=== PATIENT | female | born 1990 | race Caucasian/White ===

== ENCOUNTER 2016-11-24 08:48 | Inpatient (IN) | payer OTHER ==
[2016-11-24] VITALS (7 sets, daily range): BP systolic 90–120; BP diastolic 55–69; PULSE 50–57; RESP 16–18; Ht 144.8 cm; Wt 62.2 kg
[~2016-11-24] VITALS: Ht 144.8 cm; Wt 62.2 kg
--- NOTE | 2016-11-24 09:32 | RADRPT ---
PROCEDURE: US OB biophysical profile. CLINICAL INDICATION: decreased movements, contractions TECHNIQUE: Multiple sonographic images of the pelvis were obtained. The images were reviewed on a PACS workstation. COMPARISON: No prior studies are available for comparison. FINDINGS: There is a single viable intrauterine gestation. Cardiac activity is present with 124 beats per min [place]. There is a vertex presentation. The placenta is anterior. There is no evidence of placental abruption. There is a normal amount of amniotic fluid with an MARIA EUGENIA = 12.5 cm. Biophysical profile: movement 2/2 tone 2/2. breathing 2/2 MARIA EUGENIA 2/2 Total 11/21 RPTAT: AA . IMPRESSION: Normal biophysical profile. . .Chan Wall MD, MD Date Time Electronically viewed and signed by .Chan Wall MD, MD on 11/24/2016 09:31 .S/
--- NOTE | 2016-11-24 09:33 | RADRPT ---
PROCEDURE: US OB. CLINICAL INDICATION: Size and dates , contractions TECHNIQUE: Multiple sonographic images of the pelvis and gravid uterus were obtained. The images were reviewed on a PACS workstation. COMPARISON: No prior studies are available for comparison. FINDINGS: There is a single viable intrauterine gestation. Cardiac activity is present with 118 beats per min [place]. There is a vertex presentation. The placenta is anterior. There is no evidence of placental abruption. There is a normal amount of amniotic fluid with an MARIA EUGENIA = 12.5 cm. Measurements were made in order to determine age. The results are as follows: BPD =8.7 cm HC =33.1 cm AC =34.9 cm FL =7.2 cm Estimated gestational age of approximately 37 weeks and 1 day based on ultrasound measurements. Clinical age: 39 weeks and 0 days. The estimated date of delivery is 12/14/16, based on ultrasound measurements. The EFW = 3312 g, 39%, based on LMP age. RPTAT: AA IMPRESSION: Single viable intrauterine gestation of approximately 37 weeks and 1 day based on ultrasound measur ements. .Chan Wall MD, Date Time Electronically viewed and signed by .Chan Wall MD, MD on 11/24/2016 09:32 .S/
[2016-11-24] MEDS ORDERED: CARBOPROST 250 MCG INJ IM PRN ×2 (10:30→15:30)
[2016-11-24] MEDS ORDERED: MISOPROSTOL 200 MCG TAB PR PRN ×2 (10:30→15:30)
[2016-11-24] MEDS ORDERED: OXYTOCIN 30 UNITS/LR 500 ML IV SCH (10:30)
[2016-11-24] MEDS ORDERED: METHYLERGONOVINE 0.2 MG INJ IM PRN ×2 (10:30→15:30)
[2016-11-24] MEDS ORDERED: CEFAZOLIN 2 GM/50 ML (PMX) 50 ML IV SCH (10:30)
[2016-11-24] MEDS ORDERED: OXYTOCIN 30 UNITS/LR 500 ML IV PRN ×2 (10:30→15:30)
[2016-11-24 10:41] LABS: BASOPHILS % 0.3 % (0.0-2.0); EOSINOPHILS # 0.1 10^3/ul (0.0-0.5); EOSINOPHILS % 1.2 % (0.0-7.0); HEMATOCRIT 31.9 % (37.0-47.0); HEMOGLOBIN 10.2 g/dl (12.0-16.0); LYMPHOCYTES % 20.4 % (15.0-51.0); MEAN CORPUSCULAR HEMOGLOBIN 27.8 pg (29.0-33.0); MEAN CORPUSCULAR VOLUME 86.9 fl (82.0-101.0); MEAN PLATELET VOLUME 10.3 fl (7.4-10.4); MONOCYTE # 0.7 10^3/ul (0.3-0.9); NEUTROPHIL # 6.6 10^3/ul (1.6-7.5); NEUTROPHILS % 68.4 % (39.0-77.0); PLATELET COUNT 215 10^3/UL (140-415); RED BLOOD COUNT 3.67 10^6/ul (4.20-5.40); WHITE BLOOD COUNT 9.7 10^3/ul (4.8-10.8)
[2016-11-24 10:55] LABS: INR 0.89; PT RATIO 0.9
[2016-11-24 10:56] LABS: PARTIAL THROMBOPLASTIN TIME 29.2 Sec (25.0-35.0)
--- NOTE | 2016-11-24 10:56 | TRIAGE ---
OB Triage Datetime Report Generated by CPN: 11/24/2016 10:56 Datetime: 11/24/2016 10:48 Assessment Type: Admission Assessment Vaginal Bleeding: None Maternal Assessment Level of Consciousness: Fully Conscious DTR's/Clonus: DTRs 2+; No Clonus Headache: Denies Blurred Vision: No Respiratory Effort: Unlabored; Regular Rhythm; Equal Expansion Breath Sounds, Left: Clear and Equal Breath Sounds, Right: Clear and Equal Nausea/Vomiting: Denies RUQ Epigastric Pain: Denies Lower Extremities Edema: None Degree: None Upper Extremities Edema: None Degree: None Facial Edema: None Fall Risk Assessment History of Falling: (0) No Secondary Diagnosis: (0) No Ambulatory Aid: (0) Bedrest/Nurse Assist Gait: (0) Normal/Bedrest/Immobile Mental Status: (0) Oriented to Own Ability Labor Evaluation Frequency: irreg Duration (sec)2399: 40-60 Quality: Mild Pattern: Normal: <= 5 Contractions in 10 Minutes Resting Tone [place]: Relaxed Heart Rate FHR Baseline Rate: 115 Variability: Moderate 6-25 bpm Accelerations: 15X15 Decelerations: Variable Category: Category II Pain Assessment Pain Scale: 0 Pain Presence: None/Denies Pain Goal: 3 Datetime: 11/24/2016 10:47 Time of Arrival: 11/24/2016 10:30 EGA: 39.0 Arrived By: Ambulatory Arrived From: Other Unit in Hospital Datetime: 11/24/2016 09:14 Maternal Assessment Level of Consciousness: Fully Conscious DTR's/Clonus: DTRs 2+; No Clonus Headache: Denies Blurred Vision: No Respiratory Effort: Unlabored; Regular Rhythm; Equal Expansion Breath Sounds, Left: Clear and Equal Breath Sounds, Right: Clear and Equal Nausea/Vomiting: Denies RUQ Epigastric Pain: Denies Facial Edema: None Fall Risk Assessment History of Falling: (0) No Secondary Diagnosis: (0) No Ambulatory Aid: (0) Bedrest/Nurse Assist IV Therapy: (0) No Gait: (0) Normal/Bedrest/Immobile Mental Status: (0) Oriented to Own Ability Fall Score: 0 Fall Risk Score Definition: No Risk: No action required Datetime: 11/24/2016 09:13 Stage of : OB Triage Assessment Type: Admission Assessment Maternal Assessment Level of Consciousness: Fully Conscious DTR's/Clonus: DTRs 2+; No Clonus Headache: Denies Blurred Vision: No Respiratory Effort: Unlabored; Regular Rhythm; Equal Expansion Breath Sounds, Left: Clear and Equal Breath Sounds, Right: Clear and Equal Nausea/Vomiting: Denies RUQ Epigastric Pain: Denies Lower Extremities Edema: None Degree: None Upper Extremities Edema: None Degree: None Facial Edema: None Temperature Route: Axillary Fall Risk Assessment History of Falling: (0) No Secondary Diagnosis: (0) No Ambulatory Aid: (0) Bedrest/Nurse Assist IV Therapy: (0) No Gait: (0) Normal/Bedrest/Immobile Mental Status: (0) Oriented to Own Ability Fall Score: 0 Fall Risk Score Definition: No Risk: No action required Pain Assessment Pain Scale: 0 Pain Presence: None/Denies Pain Type: N/A Datetime: 11/24/2016 09:12 Time of Arrival: 11/24/2016 10:30 EGA: 39.0 Arrived By: Ambulatory Arrived From: Home Chief Complaint: PT REPORTS DR. BERMUDEZ SENT HER FROM THE CLINIC FOR SCHEDULED C/S Movement: Present Contractions: Denies/Absent Rupture of Membranes: Denies Vaginal Bleeding: None Vaginal Discharge: Denies Recent Sexual Intercouse: Denies Abdominal Trauma: Not Applicable Time Provider Notified: 11/24/2016 09:30 Provider Notified: DR. BERMUDEZ Initial Plan: SVE, BPP, EFW Datetime: 11/24/2016 09:11 Vaginal Exam Dilatation (cms): 0.0 Effacement (%): 0 Station: -3 Exam By: MIKAELA GARCIA
[2016-11-24] MEDS ORDERED: LACTATED RINGER'S 1,000 ML IV SCH (11:06)
[2016-11-24] MEDS ORDERED: CITRIC ACID/NA CITRATE 30 ML CUP ONE (11:09)
[2016-11-24] MEDS ORDERED: ONDANSETRON 4 MG INJ ONE (11:09)
[2016-11-24] MEDS ORDERED: morphine SULFATE/PF (10 MG/10 ML) INJ ONE (11:54)
[2016-11-24] MEDS ORDERED: OXYTOCIN 10 UNIT INJ ONE (11:55)
[2016-11-24] MEDS ORDERED: PHENYLephrine (100 MCG/ML) 5ML SYG ONE ×2 (11:55→12:30)
[2016-11-24] MEDS ORDERED: CITRIC ACID/NA CITRATE 30 ML CUP PO ONE (12:00)
[2016-11-24] MEDS ORDERED: ONDANSETRON 4 MG INJ IV ONE (12:00)
[2016-11-24] MEDS ORDERED: DEXAMETHASONE 4 MG/ML 1 ML INJ ONE (12:23)
[2016-11-24] MEDS ORDERED: KETOROLAC 30 MG INJ ONE (12:23)
[2016-11-24] MEDS ORDERED: METOCLOPRAMIDE 10 MG INJ ONE (12:23)
[2016-11-24] MEDS ORDERED: DIPHENHYDRAMINE 50 MG INJ IV PRN ×2 (12:30→16:00)
[2016-11-24] MEDS ORDERED: NALOXONE (0.4 MG/ML) INJ IV PRN ×2 (12:30→16:00)
[2016-11-24] MEDS ORDERED: HYDROmorphONE 1 MG/ML SYG IV PRN ×4 (12:30→16:00)
[2016-11-24] MEDS ORDERED: morphine 4 MG/ML VIAL IV PRN ×2 (12:30→16:00)
[2016-11-24] MEDS ORDERED: HYDROCODONE/APAP (5/325) TAB PO PRN ×3 (12:30→16:00)
[2016-11-24] MEDS ORDERED: ONDANSETRON 4 MG INJ IV PRN ×2 (12:30→16:00)
[2016-11-24] MEDS ORDERED: KETOROLAC 30 MG INJ IV PRN ×2 (12:30→16:00)
[2016-11-24] MEDS ORDERED: ACETAMINOPHEN 500 MG TAB PO PRN ×2 (12:30→16:00)
[2016-11-24] MEDS ORDERED: NALBUPHINE HCL (10 MG/1 ML) INJ IV PRN ×2 (12:30→16:00)
[2016-11-24] MEDS ORDERED: morphine 2 MG INJ IV PRN ×2 (12:30→16:00)
--- NOTE | 2016-11-24 12:56 | OPR ---
Date/Time of Note Date/Time of Note DATE: 11/24/16 TIME: 12:54 Operative Report Free Text/Dictation iup 39 weeks in early labor cat II tracing at times with regular Ucx Preoperative Diagnosis iu p 39 weeks ho of c/section X2 ealry labor Postoperative Diagnosis same Operation/Procedure Performed [facility] Surgeon: BRIDGER SALDIVAR MD technical administrative assistant: GALINA RUIZ MD Anesthesia Type: spinal Estimated Blood Loss: other (600) Transfusion Required: no Specimen: none Specimens placenta BRIDGER SALDIVAR MD Nov 24, 2016 12:56
--- NOTE | 2016-11-24 13:59 | HP ---
DATE OF ADMISSION: 11/24/2016 HISTORY OF PRESENT ILLNESS: The patient is a 26-year-old, G3, P2, who is now at 39 weeks with a history of section x2, for repeat section. Although the patient was not complaining of abdominal pain, the patient was found to have a category 2 tracing and comes in for decelerations. The patient was saad every one to three minutes. At this point, the patient was admitted for repeat section. Risks and benefits discussed which include infection, bleeding, possibility of blood transfusions which were discussed with patient. PAST MEDICAL HISTORY: None. PAST SURGICAL HISTORY: section x2. MEDICATIONS: vitamins. PHYSICAL EXAMINATION: VITAL SIGNS: Stable. HEART: Regular rate and rhythm. LUNGS: Clear to auscultation bilaterally. ABDOMEN: Soft. Fundal height is 38 cm. EXTREMITIES: No edema. ASSESSMENT: Intrauterine at 39 weeks, history of section x2. The patient desires repeat. The patient will be admitted for repeat section. Risks and benefits discussed. The patient understands this, for hospital admission. Dictated By: David Rothman MD /lucy/humberto /Document#: [id number]
--- NOTE | 2016-11-24 14:05 | OPR ---
DATE OF OPERATION: 11/24/2016 PREOPERATIVE DIAGNOSES: 1. Intrauterine at 39 weeks. 2. History of section x2. Patient desires repeat. POSTOPERATIVE DIAGNOSES: 1. Intrauterine at 39 weeks. 2. History of section x2. Patient desires repeat. OPERATION PERFORMED: Repeat low segment transverse section. SURGEON: David Rothman MD SUPERVISOR SEWING ROOM: Unruly Pope MD FINDINGS: 1. A viable infant. 2. Normal tubes and ovaries. ESTIMATED BLOOD LOSS: 600 COMPLICATIONS: None. SPECIMEN: Placenta. INDICATION: The patient is a 26-year-old, G3, P2. Patient now at 39 weeks. For repeat section. The patient presented to [facility] and upon monitoring, it was noted that the patient was having irregular uterine contractions. The patient had occasional variable decelerations. In view of the fact that the patient was term, had desired repeat section, and was having category 2 tracing at times and uterine contractions, the patient was admitted for repeat section. Risks and benefits discussed which included infection, bleeding, damage to organs, need for blood transfusion. All discussed with patient. The patient understood the risks and consented to the procedure. DESCRIPTION OF PROCEDURE: The patient presented to the operating room where a spinal was found to be adequate. The patient was then prepped and draped in normal sterile fashion. Anesthesia was confirmed using a scalpel. The skin incision was done. The incision was taken down to underlying fascia. The fascia was nicked in the midline and extended laterally using Stevenson scissors. The incision was then extended superiorly with manual extension and also with Stevenson scissors. Midline identified and peritoneum was then entered bluntly. The peritoneal incision was then extended superiorly and inferiorly. Bladder blade placed in. Bladder flap created. The bladder flap was then taken down. A low-segment incision made on the uterus. The uterine incision was then extended with bandage scissors. The infant's head was then delivered atraumatically. Bulb suctioned on the perineum. The cord was cut and clamped. After a 30-second cord delay, the placenta was then delivered. Uterus was exteriorized, cleared of all blood clots and debris. The uterine incision was closed with 0 Monocryl in running fashion. A second imbricating layer was also placed. The uterus was placed back into the abdominal cavity. Good hemostasis was noted. The peritoneum was brought back together in the midline using a 2-0 Vicryl. The fascia was closed with 0 Vicryl. The subcu fat was closed with a 3-0 plain. The skin was closed with faizan. The patient tolerated the procedure well. All lap and needle counts were correct x2. The patient was taken to recovery. Dictated By: David Rothman MD /lucy/humberto /Document#: [id number]
[2016-11-24] MEDS: LACTATED RINGER'S 1,000 ML IV SCH ×2 (15:13→23:13)
[2016-11-24] MEDS: OXYTOCIN 30 UNITS/LR 500 ML IV SCH ×2 (18:55→23:25)
[2016-11-24] MEDS: SENNA/DOCUSATE NA (8.6MG/50MG) TAB PO SCH (21:00)
[2016-11-25] VITALS: BP 102/64; PULSE 56; RESP 18
--- NOTE | 2016-11-25 01:31 | OPPN ---
Date/Time of Note Date/Time of Note DATE: 11/25/16 TIME: 01:31 Post-Anesthesia Notes Post-Anesthesia Note Last documented vital signs Vital Signs Date Time Temp Pulse Resp B/P Pulse Ox O2 Delivery O2 Flow Rate FiO2 11/24/16 20:00 98.0 55 18 98 Room Air Activity: WNL Respiratory function: WNL Cardiovascular function: WNL Mental status: Baseline Pain reasonably controlled: Yes Hydration appropriate: Yes Nausea/Vomiting absent: Yes SINCERE CHINO MD Nov 25, 2016 01:31
[2016-11-25] MEDS: LACTATED RINGER'S 1,000 ML IV SCH ×3 (03:14→23:13)
[2016-11-25 04:20] VITALS: BP 95/56; PULSE 66; RESP 18
[2016-11-25 07:40] VITALS: BP 100/58; PULSE 66; RESP 18
[2016-11-25 08:19] LABS: BASOPHILS % 0.2 % (0.0-2.0); EOSINOPHILS # 0.1 10^3/ul (0.0-0.5); EOSINOPHILS % 0.7 % (0.0-7.0); LYMPHOCYTES # 1.8 10^3/ul (0.8-2.9); LYMPHOCYTES % 17.2 % (15.0-51.0); MEAN CORPUSCULAR HEMOGLOBIN 26.5 pg (29.0-33.0); MEAN CORPUSCULAR VOLUME 85.5 fl (82.0-101.0); MEAN PLATELET VOLUME 10.7 fl (7.4-10.4); MONOCYTE # 0.7 10^3/ul (0.3-0.9); NEUTROPHIL # 7.6 10^3/ul (1.6-7.5); NEUTROPHILS % 73.5 % (39.0-77.0); PLATELET COUNT 210 10^3/UL (140-415); RED BLOOD COUNT 3.39 10^6/ul (4.20-5.40); RED CELL DISTRIBUTION WIDTH 16.8 % (11.5-14.5); WHITE BLOOD COUNT 10.3 10^3/ul (4.8-10.8)
[2016-11-25] MEDS ORDERED: CELECOXIB 200 MG CAP PO SCH (09:00)
[2016-11-25] MEDS: SENNA/DOCUSATE NA (8.6MG/50MG) TAB PO SCH ×2 (09:15→21:44)
--- NOTE | 2016-11-25 11:55 | QN ---
Documentation Comment Progress Note POD #1 Pt doing well and is with good pain management. No nausea or vomiting. On clear liquids only so far. . T=97.8 BP 100/58 Fundus firm. Dressing is clean, dry and intact. Hook still in place. Ext NT, no edema. A: POD #1 Stable. P: D/C hook. D/C IV. Change to p.o. pain meds. Regular diet. Encourage ambulation. YENNY KLEIN MD Nov 25, 2016 11:55
[2016-11-25 12:00] VITALS: BP 93/53; PULSE 57; RESP 18
[2016-11-25 16:11] VITALS: BP 94/55; PULSE 57; RESP 18
[2016-11-25 20:00] VITALS: BP 92/54; PULSE 66; RESP 18
[2016-11-25] MEDS: IBUPROFEN 800 MG TAB PO SCH (21:45)
[2016-11-26 04:00] VITALS: BP 88/52; PULSE 68; RESP 18
[2016-11-26] MEDS: IBUPROFEN 800 MG TAB PO SCH ×3 (05:34→21:22)
[2016-11-26] MEDS: LACTATED RINGER'S 1,000 ML IV SCH ×2 (07:13→15:13)
[2016-11-26 07:50] VITALS: BP 99/57; PULSE 56; RESP 18
[2016-11-26] MEDS: SENNA/DOCUSATE NA (8.6MG/50MG) TAB PO SCH ×2 (09:16→21:21)
--- NOTE | 2016-11-26 13:44 | QN ---
Documentation Comment POD#2 is stable afebrile tolerates diet No VB +flatus +voids VS stable Gen NAD Abd Soft NT ND Incision intact Genitalia No blood at perinium --->Ambulation --->discharge plan tomorrow CAROLYN EDUARDO M.D. Nov 26, 2016 13:44
[2016-11-26 16:00] VITALS: BP 108/58; PULSE 72; RESP 16
[2016-11-26 19:35] VITALS: BP 113/66; PULSE 64; RESP 18
[2016-11-27] MEDS: HYDROCODONE/APAP (5/325) TAB PO PRN ×2 (03:34→09:39)
[2016-11-27 04:10] VITALS: BP 97/59; PULSE 69; RESP 17
[2016-11-27] MEDS: IBUPROFEN 800 MG TAB PO SCH (05:57)
[2016-11-27 08:30] VITALS: BP 90/51; PULSE 55; RESP 20
[2016-11-27] MEDS: SENNA/DOCUSATE NA (8.6MG/50MG) TAB PO SCH (09:38)
--- NOTE | 2016-11-27 11:22 | DS ---
Date/Time of Note Date/Time of Note DATE: 11/27/16 TIME: 11:21 Obstetrical Discharge Record Final Diagnosis Final Diagnosis: Term delivered Other Final Diagnosis pt presented in early labor at 39 weeks and underwent rpt c/s. pod pt is doing well.. vss exam wnl and hh stable pt will be dc home and fu in two weeks with obgyn er precautions given. Section Section: Repeat Condition on Discharge Physical Assessment Voiding: Yes Bowel Movement: Yes Breast: Soft, non-tender Fundus: Firm Abdomen and Incision: CDI Calf Tenderness: No Patient Condition: Stable BRIDGER SALDIVAR MD Nov 27, 2016 11:22
[2016-11-27] MEDS ORDERED: IBUPROFEN 800 MG TAB PO SCH (22:00)
== END 2016-11-27 14:04 | disposition home or self-care (01) | DRG 766 ==
LOC: OBT 08:48 → L-D 08:49 → OBT 10:38 → L-D 10:40 → PP1 15:25
PROC: 10D00Z1 Extraction of Products of Conception, Low, Open Approach (ICD-10-PCS; principal; 2016-11-24 11:30)
DX: O82 Encounter for cesarean delivery without indication (principal); O34.211 Maternal care for low transverse scar from previous cesarean delivery; Z37.0 Single live birth; Z3A.39 39 weeks gestation of pregnancy
CPT/HCPCS: 76815; 76818; 85025; 85610; 85730; 86592; 86850; 86900; 86901; 94760; 99464; G0463; J0690; J1100; J1885; J2210; J2274; J2370; J2405; J2590; J2765; J7120

== ENCOUNTER 2017-03-13 10:21 | Emergency (ER) | payer OTHER ==
[~2017-03-13] VITALS: Ht 157.5 cm; Wt 57.5 kg
[2017-03-13 10:35] VITALS: Ht 157.5 cm; Wt 57.5 kg
[2017-03-13] MEDS ORDERED: ACETAMINOPHEN 325 MG TAB PO STA (11:27)
[2017-03-13] MEDS ORDERED: ONDANSETRON (ODT) 4 MG TAB ODT STA (11:27)
[2017-03-13 12:33] LABS: ADD UMIC NO; UR ASCORBIC ACID NEGATIVE (NEGATIVE); UR BILIRUBIN (Dip) NEGATIVE (NEGATIVE); UR BLOOD (Dip) NEGATIVE (NEGATIVE); UR CLARITY CLEAR (CLEAR); UR COLOR YELLOW (YELLOW); UR GLUCOSE (Dip) NEGATIVE (NEGATIVE); UR KETONES (Dip) NEGATIVE (NEGATIVE); UR LEUKOCYTE ESTERASE (Dip) NEGATIVE Leu/ul (NEGATIVE); UR NITRITE (Dip) NEGATIVE (NEGATIVE); UR SPECIFIC GRAVITY (Dip) 1.021 (1.003-1.030); UR TOTAL PROTEIN (Dip) NEGATIVE (NEGATIVE); UR UROBILINOGEN (Dip) NEGATIVE (NEGATIVE)
[2017-03-13] MEDS ORDERED: ACET325T33 PO (12:45)
[2017-03-13] MEDS ORDERED: ONDA4TAB14 PO (12:45)
--- NOTE | 2017-03-13 16:10 | ERD ---
ER Documentation Chief Complaint Chief Complaint AP BODYACHES X 1 DAYS NAUSEA AND DIARRHEA HPI 26 female presents to the emergency department complaining of mild to moderate abdominal pain, body aches, nausea and diarrhea for the past day. She denies any fevers, dysuria. ROS All systems reviewed and are negative except as per history of present illness. Medications Home Meds Active Scripts Ondansetron (Ondansetron Odt) 4 Mg Tab.rapdis, 4 MG PO Q6H Y for NAUSEA AND/OR VOMITING, #10 TAB Prov:SHRUTHI JULIAN PA-C 03/13/17 Acetaminophen* (Tylenol*) 325 Mg Tablet, 2 TAB PO Q6 Y for PAIN AND OR ELEVATED TEMP, #20 TAB Prov:SHRUTHI JULIAN PA-C 03/13/17 Allergies Allergies: Coded Allergies: No Known Allergy (Unverified , 03/13/17) PMhx/Soc Medical and Surgical Hx: pt denies Medical Hx History of Surgery: Yes (caesarian section x 3) Anesthesia Reaction: No Hx Neurological Disorder: No Hx Respiratory Disorders: No Hx Cardiac Disorders: No Hx Psychiatric Problems: No Hx Miscellaneous Medical Probl: No Hx Alcohol Use: No Hx Substance Use: No Hx Tobacco Use: No Smoking Status: Never smoker Physical Exam Vitals Vital Signs Date Time Temp Pulse Resp B/P Pulse Ox O2 Delivery O2 Flow Rate FiO2 03/13/17 10:35 98.0 89 18 121/66 99 Physical Exam Const: [] Head: Atraumatic Eyes: Normal Conjunctiva ENT: Normal External Ears, Nose and Mouth. Neck: Full range of motion..~ No meningismus. Resp: Clear to auscultation bilaterally Cardio: Regular rate and rhythm, no murmurs Abd: Soft, non tender, non distended. Normal bowel sounds Skin: No petechiae or rashes Back: No midline or flank tenderness Ext: No cyanosis, or edema Neur: Awake and alert Psych: Normal Mood and Affect Results 24 hrs Laboratory Tests Test 03/13/17 11:35 Urine Color YELLOW Urine Clarity CLEAR Urine pH 6.0 Urine Specific [place] 1.021 Urine Ketones NEGATIVEmg/dL Urine Nitrite NEGATIVEmg/dL Urine Bilirubin NEGATIVEmg/dL Urine Urobilinogen NEGATIVEmg/dL Urine Leukocyte Esterase NEGATIVELeu/ul Urine Hemoglobin NEGATIVEmg/dL Urine Glucose NEGATIVEmg/dL Urine Total Protein NEGATIVEmg/dl Current Medications Medications (Trade) Dose Ordered Sig/Alecia Route PRN Reason Start Time Stop Time Status Last Admin Dose Admin Acetaminophen (Tylenol Tab) 650 mg ONCE STAT PO 03/13/17 11:27 03/13/17 11:29 DC 03/13/17 11:58 Ondansetron HCl (Zofran Odt) 4 mg ONCE STAT ODT 03/13/17 11:27 03/13/17 11:29 DC 03/13/17 11:58 Procedures/MDM 26-year-old female presenting to emergency department complaining of generalized abdominal pain, body aches nausea and diarrhea for the past day. On examination patient did not have significant abdominal pain. She appears well, afebrile and stable to be discharged home. This is likely a viral syndrome. There is no evidence of acute abdomen or urinary tract infection. Discussed CT scan with patient however she states that she can go home and rest Departure Diagnosis: Primary Impression: Abdominal pain Condition: Stable Patient Instructions: Abdominal Pain Referrals: DOCTOR,NOT ON STAFF (PCP) Additional Instructions: FOLLOW UP WITH YOUR PRIMARY CARE PHYSICIAN TOMORROW.Return to this facility if you are not improving as expected. Take all medicines as directed. Return to this facility if you are not improving as expected. SHRUTHI JULIAN PA-C Mar 13, 2017 16:10
== END 2017-03-13 13:04 | disposition home or self-care (01) ==
LOC: FTE 10:21
DX: R10.84 Generalized abdominal pain (principal)
CPT/HCPCS: 81003; Z7502; Z7610; 99283